=== PATIENT | male | born 1970 | race Caucasian/White ===

== ENCOUNTER → 2020-06-19 | Outpatient (CLI) | payer BC ==
[~2020-06-19] MED LIST: HYDROXYZINE HCL25 MG PO; ZOFRAN4 MG PO
== END ==
LOC: KOH-I 13:00
DX: M54.5 Low back pain (principal); R33.9 Retention of urine, unspecified
CPT/HCPCS: 74176

== ENCOUNTER 2020-07-06 07:59 | Emergency (ER) | payer BC, OTHER ==
[~2020-07-06 07:59] MED LIST changes: -HYDROXYZINE HCL25 MG PO
[2020-07-06 09:02] LABS: HEMOGLOBIN 14.9 gm/dl (14.0-17.5); RED BLOOD COUNT 5.15 M/UL (4.20-5.50); WHITE BLOOD COUNT 8.6 K/UL (4.5-11.0)
[2020-07-06 09:28] LABS: BUN/CREATININE RATIO 12 (0-10)
[2020-07-06] MEDS ORDERED: HYDROXYZINE HCL25 MG PO (12:02)
== END 2020-07-06 12:15 | disposition home or self-care (01) ==
LOC: ER1 07:59
PROVIDERS: Physician Assistant
DX: F41.9 Anxiety disorder, unspecified (principal); I45.10 Unspecified right bundle-branch block; Z95.0 Presence of cardiac pacemaker
CPT/HCPCS: 71045; 80053; 82550; 82553; 83735; 83874; 84443; 84484; 85025; 93005; 99285; Q0177

== ENCOUNTER 2020-07-17 15:16 | Emergency (ER) | payer BC, OTHER ==
[~2020-07-17 15:16] MED LIST changes: +HYDROXYZINE HCL25 MG PO
== END 2020-07-17 16:22 | disposition home or self-care (01) ==
LOC: ER1 15:16
DX: H53.8 Other visual disturbances (principal); L29.9 Pruritus, unspecified; Z95.0 Presence of cardiac pacemaker; Z86.79 Personal history of other diseases of the circulatory system; Z53.20 Procedure and treatment not carried out because of patient's decision for unspecified reasons
CPT/HCPCS: 82962; 93005; 99284

== ENCOUNTER 2020-07-24 00:15 | Emergency (ER) | payer BC, OTHER ==
[2020-07-24 01:11] LABS: HEMOGLOBIN 15.7 gm/dl (14.0-17.5); RED BLOOD COUNT 5.39 M/UL (4.20-5.50); WHITE BLOOD COUNT 8.2 K/UL (4.5-11.0)
[2020-07-24 01:27] LABS: BUN/CREATININE RATIO 12 (0-10)
== END 2020-07-24 03:15 | disposition home or self-care (01) ==
LOC: ER1 00:15
PROVIDERS: Family Medicine
DX: F41.9 Anxiety disorder, unspecified (principal); G47.00 Insomnia, unspecified; Z79.899 Other long term (current) drug therapy
CPT/HCPCS: 36415; 80053; 80307; 81001; 84439; 84443; 85025; 93005; 99283

== ENCOUNTER → 2020-07-25 | Outpatient (CLI) | payer BC, OTHER | LOC: KOH-I 07-24 10:30 | DX: R51.9 Headache, unspecified (principal) | CPT/HCPCS: 70450 ==

== ENCOUNTER → 2020-08-13 | Outpatient (CLI) | payer BC, OTHER | LOC: HEART 5 07-24 09:00 | DX: I47.2 Ventricular tachycardia (principal); I08.1 Rheumatic disorders of both mitral and tricuspid valves | CPT/HCPCS: 93306 ==